=== PATIENT | male | born 1965 | race Caucasian/White ===

== ENCOUNTER 2016-12-24 19:57 | Day surgery (SDCO) | payer OTHER ==
[2016-12-24 20:53] LABS: BASOPHIL 0.2 % (0-2); EOSINOPHIL 0.6 % (0-5); HCT 45.6 % (42.0-52.0); HGB 15.4 g/dl (13.2-18.0); MCH 30.6 pg (25.0-31.0); MCHC 33.8 g/dL (32.0-36.0); MCV 90.7 fL (78.0-100.0); MONOCYTE 3.2 % (0-12); MPV 10.8 fL (6.0-9.5); PLT 212 K/uL (150-400); RBC 5.03 M/uL (4.70-6.00); RDW 12.8 % (11.5-14.0); WBC 10.6 K/uL (4.0-10.5)
[2016-12-24 20:58] LABS: INR 1.03 (0.9-1.2); PROTHROMBIN TIME 13.1 SECONDS (11.7-14.0); PTT 27.5 SECONDS (23.2-31.4)
[2016-12-24 20:59] LABS: D-DIMER 0.52 ug/mLFEU (0.00-0.41)
[2016-12-24 21:04] LABS: ALBUMIN 4.4 g/dL (3.5-5.0); BILIRUBIN - TOTAL 0.4 mg/dL (0.1-1.0); CREATININE 1.3 mg/dL (0.7-1.2); GLOBULIN (CALCULATION) 2.9 g/dL (2.2-4.2); POTASSIUM 4.5 mmol/L (3.5-5.1); TOTAL PROTEIN 7.3 g/dL (6.4-8.3)
[2016-12-24 21:05] LABS: PRO-BNP 42 pg/mL (0-125); TROPONIN T < 0.010 ng/mL
[2016-12-24 22:04] LABS: LACTIC ACID 3.4 mmol/L (0.5-2.2)
[2016-12-25 06:32] LABS: HCT 42.9 % (42.0-52.0); HGB 14.7 g/dl (13.2-18.0); MCH 30.8 pg (25.0-31.0); MCHC 34.3 g/dL (32.0-36.0); MCV 89.7 fL (78.0-100.0); MPV 9.8 fL (6.0-9.5); RBC 4.78 M/uL (4.70-6.00); RDW 12.7 % (11.5-14.0); WBC 11.2 K/uL (4.0-10.5)
[2016-12-25 07:02] LABS: CREATININE 1.1 mg/dL (0.7-1.2); POTASSIUM 3.8 mmol/L (3.5-5.1)
[2016-12-26 06:03] LABS: HCT 42.2 % (42.0-52.0); HGB 14.4 g/dl (13.2-18.0); MCH 31.3 pg (25.0-31.0); MCHC 34.1 g/dL (32.0-36.0); MCV 91.7 fL (78.0-100.0); MPV 10.2 fL (6.0-9.5); RBC 4.6 M/uL (4.70-6.00); RDW 12.9 % (11.5-14.0); WBC 9.4 K/uL (4.0-10.5)
[2016-12-26 06:19] LABS: CREATININE 1.2 mg/dL (0.7-1.2); POTASSIUM 3.8 mmol/L (3.5-5.1)
[2016-12-26] MEDS ORDERED: SYNTHROID125 MCG PO (13:29)
[2016-12-26] MEDS ORDERED: GABAPENTIN800 MG PO (13:29)
[2016-12-26] MEDS ORDERED: ALLERGY PILL PO (13:30)
[2016-12-26] MEDS ORDERED: OXYCODONE HCL15 MG PO (13:30)
[2016-12-26] MEDS ORDERED: OMEPRAZOLE40 MG PO (13:30)
[2016-12-26] MEDS ORDERED: TOPAMAX100 MG PO (13:30)
[2016-12-26] MEDS ORDERED: ZOCOR40 MG PO (13:30)
[2016-12-26] MEDS ORDERED: PROSCAR5 MG PO (13:31)
[2016-12-26] MEDS ORDERED: MICRO-K10 MEQ PO (13:31)
[2016-12-26] MEDS ORDERED: FLOMAX0.4 MG PO (13:31)
[2016-12-26] MEDS ORDERED: FENOFIBRATE160 MG PO (13:31)
[2016-12-26] MEDS ORDERED: VALIUM10 MG PO (13:32)
[2016-12-26] MEDS ORDERED: ACCUPRIL40 MG PO (13:32)
[2016-12-26] MEDS ORDERED: BUPROPION XL300 MG PO (13:32)
[2016-12-26] MEDS ORDERED: CERTAGEN1 EACH PO (13:33)
[2016-12-26] MEDS ORDERED: IMITREX100 MG PO (13:33)
[2016-12-26] MEDS ORDERED: VITAMIN B-121000 MC1 PO (13:33)
[2016-12-26] MEDS ORDERED: PHENTERMINE H37.5 MG PO (13:33)
[2016-12-26] MEDS ORDERED: LASIX20 MG PO (13:33)
[2016-12-26] MEDS ORDERED: FIORICET1 EACH PO (13:34)
[2016-12-26] MEDS ORDERED: TYLENOL ARTHRI650 MG PO (13:34)
[2016-12-26] MEDS ORDERED: PERCOCET 5-3251 EACH PO (13:34)
== END 2016-12-26 14:45 | disposition home health service (06) ==
LOC: FER 19:57 → FTCU 22:42 → FMS 22:42
PROVIDERS: Emergency Medicine; Internal Medicine; ADMIT Internal Medicine Cardiovascular Disease
DX: J96.01 Acute respiratory failure with hypoxia (principal); I11.0 Hypertensive heart disease with heart failure; I50.9 Heart failure, unspecified; E78.5 Hyperlipidemia, unspecified; E03.9 Hypothyroidism, unspecified; G47.30 Sleep apnea, unspecified; M54.5 Low back pain; G89.4 Chronic pain syndrome; H54.8 Legal blindness, as defined in USA; E66.01 Morbid (severe) obesity due to excess calories; Z98.1 Arthrodesis status; Z90.89 Acquired absence of other organs; Z98.890 Other specified postprocedural states; Z82.49 Family history of ischemic heart disease and other diseases of the circulatory system; Z88.6 Allergy status to analgesic agent; Z87.448 Personal history of other diseases of urinary system; Z79.899 Other long term (current) drug therapy; Z79.891 Long term (current) use of opiate analgesic; M75.121 Complete rotator cuff tear or rupture of right shoulder, not specified as traumatic; S43.431A Superior glenoid labrum lesion of right shoulder, initial encounter; M75.41 Impingement syndrome of right shoulder; M19.011 Primary osteoarthritis, right shoulder; E78.00 Pure hypercholesterolemia, unspecified; Z86.14 Personal history of Methicillin resistant Staphylococcus aureus infection
CPT/HCPCS: 36415; 36600; 71010; 80048; 80053; 82803; 83036; 83605; 83880; 84484; 85025; 85379; 85610; 85730; 93005; 94640; 94760; 97110; 97116; 97162; 97166; 97530; 97530-GP; 97535; C1713; G0378; J1100; J1170; J1940; J1956; J2270; J2405; J2704; J2795; J2930; J3010

== ENCOUNTER → 2016-12-24 | Day surgery (SDC) | payer OTHER ==
--- NOTE | 2016-12-18 15:33 | NUR ---
PT PRESENTS TODAY ALONE STATES HE IS LEGALLY BLIND RUDDY NOT KNOW WHO WILL TRANSPORT HOME POST OP WOULD LIKE TO STAY IN HOSP POST OP I INSTRUCTED PT TO CONTACT MD OFFICE TO SEE IF THIS COULD BE MADE POSSIBLE ALSO TOLD PT TO CHECK WITH HIS CHILD WELFARE CASEWORKER TO SEE IF THIS IS PERMITTED PER INSURANCE REVIEWED PAPERS HE NEEDED TO SIGN I EXPLAINED TO HIM HE DID NOT WANT ME TO READ IT TO HIM HE DID NOT KNOW HIS MEDICATION SO HE CALLED HIS DAUGHTER AND SHE GAVE THEM TO ME VERBALLY OVER THE PHONE I ASKED HIM IF HE QANTED TO TALK TO DISCHARGE [facility] PT REP HERE HE SAID NO IF HE CANT FIND A RIDE HE WILL HITCH HIKE HERE
[~2016-12-24] MED LIST: ACCUPRIL40 MG PO; ALLERGY PILL PO; BUPROPION XL300 MG PO; CERTAGEN1 EACH PO; FENOFIBRATE160 MG PO; FIORICET1 EACH PO; FLOMAX0.4 MG PO; GABAPENTIN800 MG PO; IMITREX100 MG PO; LASIX20 MG PO; MICRO-K10 MEQ PO; OMEPRAZOLE40 MG PO; OXYCODONE HCL15 MG PO; PERCOCET 5-3251 EACH PO; PHENTERMINE H37.5 MG PO; PROSCAR5 MG PO; SYNTHROID125 MCG PO; TOPAMAX100 MG PO; TYLENOL ARTHRI650 MG PO; VALIUM10 MG PO; VITAMIN B-121000 MC1 PO; ZOCOR40 MG PO
== END | disposition home or self-care (01) ==
LOC: FAS 08:24
DX: M75.121 Complete rotator cuff tear or rupture of right shoulder, not specified as traumatic (principal); S43.431A Superior glenoid labrum lesion of right shoulder, initial encounter; M75.41 Impingement syndrome of right shoulder; M19.011 Primary osteoarthritis, right shoulder; I10 Essential (primary) hypertension; E03.9 Hypothyroidism, unspecified; E78.00 Pure hypercholesterolemia, unspecified; H54.8 Legal blindness, as defined in USA; G47.30 Sleep apnea, unspecified; F41.9 Anxiety disorder, unspecified; F32.9 Major depressive disorder, single episode, unspecified; K44.9 Diaphragmatic hernia without obstruction or gangrene; K21.9 Gastro-esophageal reflux disease without esophagitis; N40.0 Benign prostatic hyperplasia without lower urinary tract symptoms; Z88.6 Allergy status to analgesic agent; Z98.1 Arthrodesis status; Z90.89 Acquired absence of other organs; Z86.14 Personal history of Methicillin resistant Staphylococcus aureus infection; Z79.891 Long term (current) use of opiate analgesic; Z79.899 Other long term (current) drug therapy; Z98.890 Other specified postprocedural states
CPT/HCPCS: C1713; J1100; J1170; J2405; J2704; J2795; J3010

== ENCOUNTER 2020-10-28 10:05 | Inpatient (IN) | payer OTHER ==
[~2020-10-28 10:05] MED LIST changes: +CYMBALTA 30MG C30 MG PO; +EMGALITY120 MG/1 M SC; +ENDOCET 10-3251 EACH PO; +GLUCOTROL5 MG PO; +METFORMIN HCL500 MG PO; +MOBIC7.5 MG PO; +NORVASC5 MG PO; +PROPRANOLOL HCL40 MG PO; +ROBAXIN500 MG PO; +TRULICITY0.75 MG/0. SC; +XANAX0.5 MG PO
[2020-10-28 11:20] LABS: BASOPHIL 0.4 % (0-2); EOSINOPHIL 0.4 % (0-5); HCT 43.8 % (42.0-52.0); HGB 15.1 g/dl (13.2-18.0); LYMPHOCYTE 9.7 % (15-48); MCH 30.5 pg (25.0-31.0); MCHC 34.5 g/dL (32.0-36.0); MCV 88.5 fL (78.0-100.0); MONOCYTE 11.9 % (0-12); MPV 10.4 fL (6.0-9.5); NEUTROPHIL 76.5 % (41-80); NRBC 0; PLT 142 K/uL (150-400); RBC 4.95 M/uL (4.70-6.00); RDW 12.7 % (11.5-14.0); WBC 5.5 K/uL (4.0-10.5)
[2020-10-28 11:34] LABS: LACTIC ACID 2.6 mmol/L (0.4-1.9)
[2020-10-28 11:41] LABS: BUN/CREAT RATIO (CALC) 14.9 RATIO; CREATININE 0.67 mg/dL (0.67-1.17)
[2020-10-28 11:57] LABS: CORONAVIRUS 2019 SARS-COV-2 POSITIVE (NEGATIVE)
[2020-10-28 11:58] LABS: INFLUENZA A NAA NEGATIVE (NEGATIVE)
[2020-10-29 06:23] LABS: HCT 42.9 % (42.0-52.0); HGB 14.9 g/dl (13.2-18.0); MCH 30.9 pg (25.0-31.0); MCHC 34.7 g/dL (32.0-36.0); MPV 10.3 fL (6.0-9.5); RBC 4.82 M/uL (4.70-6.00); RDW 12.8 % (11.5-14.0); WBC 5.1 K/uL (4.0-10.5)
[2020-10-29 06:24] LABS: BUN/CREAT RATIO (CALC) 21.5 RATIO; CREATININE 0.65 mg/dL (0.67-1.17); POTASSIUM 3.8 mmol/L (3.5-5.1)
[2020-10-29] MEDS ORDERED: LEVSIN-SL0.125 MG PO (08:57)
[2020-10-30 05:54] LABS: HCT 42.1 % (42.0-52.0); HGB 14.8 g/dl (13.2-18.0); MCH 31.2 pg (25.0-31.0); MCHC 35.2 g/dL (32.0-36.0); MCV 88.8 fL (78.0-100.0); MPV 10.1 fL (6.0-9.5); RBC 4.74 M/uL (4.70-6.00); RDW 12.7 % (11.5-14.0); WBC 4.3 K/uL (4.0-10.5)
[2020-10-30 06:21] LABS: ALBUMIN 3.3 g/dL (3.4-5.0); BILIRUBIN - DIRECT 0.2 mg/dL (0.00-0.20); BILIRUBIN - TOTAL 0.5 mg/dL (0.2-1.0); BUN/CREAT RATIO (CALC) 25.7 RATIO; CREATININE 0.74 mg/dL (0.67-1.17); GLOBULIN (CALCULATION) 3.3 g/dL; POTASSIUM 3.8 mmol/L (3.5-5.1); TOTAL PROTEIN 6.6 g/dL (6.4-8.2)
--- NOTE | 2020-10-30 15:55 | NUR ---
PLASMA VERIFIED WITH TWO RN'S, ALL PARTS WERE SCANNED WITH NO ERROR CODES, SECOND RN WAS ABLE TO COSIGN WITH NO ISSUES, AFTER PLASMA FINISHED THIS RN NOTICED THAT THERE WAS NOT AN END OPTION TO STATE THE PLASMA HAD ENDED. WE SPOKE TO QUALITATIVE FIELD COORDINATOR, AND YAEL SYED, WE RESCANNED AND BACK TIME
[2020-10-30] MEDS ORDERED: HYOSCYAMINE0.375 MG PO (17:25)
--- NOTE | 2020-10-31 15:24 | NUR ---
10/31/20 Discharge is anticipated for 11/01. A referral was made to [facility] for home 02. [facility]. [facility] declined the referral based on insurance. Mr. Akins chose [facility] as second choice; affliation explained. A referral was made to [facility] via [facility].
[2020-11-01 07:44] LABS: ALBUMIN 3.2 g/dL (3.4-5.0); BILIRUBIN - TOTAL 0.8 mg/dL (0.2-1.0); BUN/CREAT RATIO (CALC) 29.8 RATIO; CREATININE 0.57 mg/dL (0.67-1.17); GLOBULIN (CALCULATION) 4.2 g/dL; MAGNESIUM 1.7 mg/dL (1.8-2.4); POTASSIUM 4.3 mmol/L (3.5-5.1); TOTAL PROTEIN 7.4 g/dL (6.4-8.2)
[2020-11-02 06:05] LABS: BASOPHIL 0.2 % (0-2); EOSINOPHIL 0.1 % (0-5); HCT 43.2 % (42.0-52.0); LYMPHOCYTE 17.9 % (15-48); MCH 30.2 pg (25.0-31.0); MCHC 34.7 g/dL (32.0-36.0); MCV 86.9 fL (78.0-100.0); MONOCYTE 11.2 % (0-12); MPV 9.8 fL (6.0-9.5); NEUTROPHIL 69.9 % (41-80); NRBC 0; PLT 175 K/uL (150-400); RBC 4.97 M/uL (4.70-6.00); RDW 12.4 % (11.5-14.0); WBC 10.1 K/uL (4.0-10.5)
[2020-11-02 06:41] LABS: BUN/CREAT RATIO (CALC) 23.6 RATIO; CREATININE 0.72 mg/dL (0.67-1.17); MAGNESIUM 1.8 mg/dL (1.8-2.4); POTASSIUM 3.4 mmol/L (3.5-5.1)
[2020-11-02] MEDS ORDERED: DULERA 200 MCG8.8 GM INH (09:14)
[2020-11-02] MEDS ORDERED: MEDROL 4MG DOSEP4 MG PO (09:14)
[2020-11-02] MEDS ORDERED: PROVENTIL HFA6.7 GM INH (09:14)
[2020-11-02] MEDS ORDERED: NORVASC5 MG PO (09:14)
[2020-11-02] MEDS ORDERED: METFORMIN HCL500 MG PO (09:14)
--- NOTE | 2020-11-02 09:31 | NUR ---
11/02/20 A was notified of dc. A report was given to MS Nimisha RN. A request was made for nursing to remind patient to call [facility] for delivery of concentrator.
== END 2020-11-02 11:50 | disposition home health service (06) | DRG 177 ==
LOC: FER 10:05 → FMS 12:10
PROVIDERS: Emergency Medicine; Internal Medicine; ADMIT Hospitalist
PROC: XW033E5 Introduction of Remdesivir Anti-infective into Peripheral Vein, Percutaneous Approach, New Technology Group 5 (ICD-10-PCS; principal; 2020-10-28)
PROC: 8E0ZXY6 Isolation (ICD-10-PCS; 2020-10-28)
PROC: XW13325 Transfusion of Convalescent Plasma (Nonautologous) into Peripheral Vein, Percutaneous Approach, New Technology Group 5 (ICD-10-PCS; 2020-10-30)
DX: U07.1 COVID-19 (principal); J12.82 Pneumonia due to coronavirus disease 2019; J96.01 Acute respiratory failure with hypoxia; Z68.41 Body mass index [BMI] 40.0-44.9, adult; E11.65 Type 2 diabetes mellitus with hyperglycemia; T38.0X5A Adverse effect of glucocorticoids and synthetic analogues, initial encounter; I10 Essential (primary) hypertension; E78.5 Hyperlipidemia, unspecified; G43.909 Migraine, unspecified, not intractable, without status migrainosus; G47.33 Obstructive sleep apnea (adult) (pediatric); E03.9 Hypothyroidism, unspecified; E66.01 Morbid (severe) obesity due to excess calories; Z98.890 Other specified postprocedural states; Z88.6 Allergy status to analgesic agent; Z99.81 Dependence on supplemental oxygen
CPT/HCPCS: 36415; 36430; 36600; 71045; 80048; 80053; 82248; 82607; 82803; 82962; 83605; 83735; 85025; 86900; 86901; 87040; 94640; 94667; 94668; 97110; 97162; 97165; 97530-GP; 97535; C9399; J1100; J1650; J3420; J3475; J7050; J8540; P9017; U0002

== ENCOUNTER 2020-11-04 17:19 | Inpatient (IN) | payer OTHER ==
[~2020-11-04 17:19] MED LIST changes: +DULERA 200 MCG8.8 GM INH; +HYOSCYAMINE0.375 MG PO; +LEVSIN-SL0.125 MG PO; +MEDROL 4MG DOSEP4 MG PO; +PROVENTIL HFA6.7 GM INH
[2020-11-04 18:48] LABS: BASOPHIL 0.4 % (0-2); EOSINOPHIL 0.4 % (0-5); HCT 47.3 % (42.0-52.0); HGB 16.2 g/dl (13.2-18.0); LYMPHOCYTE 9.5 % (15-48); MCH 30.1 pg (25.0-31.0); MCHC 34.2 g/dL (32.0-36.0); MCV 87.9 fL (78.0-100.0); MONOCYTE 8.2 % (0-12); NEUTROPHIL 79.9 % (41-80); NRBC 0; PLT 283 K/uL (150-400); RBC 5.38 M/uL (4.70-6.00); RDW 12.7 % (11.5-14.0); WBC 13.4 K/uL (4.0-10.5)
[2020-11-04 19:08] LABS: ALBUMIN 3.2 g/dL (3.4-5.0); BILIRUBIN - TOTAL 0.8 mg/dL (0.2-1.0); BUN/CREAT RATIO (CALC) 21.1 RATIO; CREATININE 0.71 mg/dL (0.67-1.17); GLOBULIN (CALCULATION) 4.9 g/dL; POTASSIUM 4.5 mmol/L (3.5-5.1); TOTAL PROTEIN 8.1 g/dL (6.4-8.2)
[2020-11-05 01:43] LABS: BASOPHIL 0.3 % (0-2); EOSINOPHIL 0 % (0-5); HGB 14.9 g/dl (13.2-18.0); LYMPHOCYTE 6.8 % (15-48); MCH 29.7 pg (25.0-31.0); MCHC 33.9 g/dL (32.0-36.0); MCV 87.6 fL (78.0-100.0); MONOCYTE 5.3 % (0-12); MPV 10.1 fL (6.0-9.5); NEUTROPHIL 85.8 % (41-80); NRBC 0; PLT 268 K/uL (150-400); RBC 5.02 M/uL (4.70-6.00); RDW 12.5 % (11.5-14.0); WBC 11.9 K/uL (4.0-10.5)
[2020-11-05 01:53] LABS: INR 1.08 (0.9-1.2); PROTHROMBIN TIME 13.3 SECONDS (11.4-13.6)
[2020-11-05 02:05] LABS: ALBUMIN 2.9 g/dL (3.4-5.0); BILIRUBIN - TOTAL 0.9 mg/dL (0.2-1.0); BUN/CREAT RATIO (CALC) 24.2 RATIO; CREATININE 0.62 mg/dL (0.67-1.17); GLOBULIN (CALCULATION) 4.7 g/dL; MAGNESIUM 1.7 mg/dL (1.8-2.4); PHOSPHORUS 4.3 mg/dL (2.6-4.7); POTASSIUM 4.5 mmol/L (3.5-5.1); TOTAL PROTEIN 7.6 g/dL (6.4-8.2)
[2020-11-05 02:16] LABS: BILIRUBIN NEGATIVE (NEGATIVE); BLOOD NEGATIVE Ery/uL (NEGATIVE); CLARITY CLEAR (CLEAR); COLOR YELLOW (YELLOW); GLUCOSE (U) 3+ mg/dL (NORMAL); LEUKOCYTES NEGATIVE Leu/uL (NEGATIVE); NITRITE NEGATIVE (NEGATIVE); PROTEIN NEGATIVE (NEGATIVE); SPECIFIC GRAVITY 1.015 (1.001-1.030)
[2020-11-05 07:24] LABS: LACTIC ACID 1.9 mmol/L (0.4-1.9)
[2020-11-06 06:33] LABS: BASOPHIL 0.3 % (0-2); EOSINOPHIL 0.1 % (0-5); HCT 40.8 % (42.0-52.0); HGB 13.9 g/dl (13.2-18.0); LYMPHOCYTE 8.3 % (15-48); MCH 30.3 pg (25.0-31.0); MCHC 34.1 g/dL (32.0-36.0); MCV 88.9 fL (78.0-100.0); MONOCYTE 8.8 % (0-12); MPV 9.7 fL (6.0-9.5); NEUTROPHIL 79.5 % (41-80); NRBC 0; PLT 248 K/uL (150-400); RBC 4.59 M/uL (4.70-6.00); RDW 12.3 % (11.5-14.0); WBC 8.8 K/uL (4.0-10.5)
[2020-11-06 07:08] LABS: ALBUMIN 2.5 g/dL (3.4-5.0); BILIRUBIN - TOTAL 0.6 mg/dL (0.2-1.0); BUN/CREAT RATIO (CALC) 23.1 RATIO; CREATININE 0.65 mg/dL (0.67-1.17); GLOBULIN (CALCULATION) 4.4 g/dL; POTASSIUM 4.4 mmol/L (3.5-5.1); TOTAL PROTEIN 6.9 g/dL (6.4-8.2)
--- NOTE | 2020-11-07 12:41 | NUR ---
11/07/20 Mr. Akins lives at home with his spouse. He has home 02 and a C-PAP. [facility] is current and was notified of admission.
[2020-11-08 06:19] LABS: BASOPHIL 0.7 % (0-2); EOSINOPHIL 0.1 % (0-5); HCT 43.8 % (42.0-52.0); HGB 15.1 g/dl (13.2-18.0); LYMPHOCYTE 8.4 % (15-48); MCH 30.2 pg (25.0-31.0); MCHC 34.5 g/dL (32.0-36.0); MCV 87.6 fL (78.0-100.0); MPV 9.5 fL (6.0-9.5); NEUTROPHIL 76.3 % (41-80); NRBC 0; PLT 349 K/uL (150-400); WBC 10.8 K/uL (4.0-10.5)
[2020-11-08 08:27] LABS: ALBUMIN 2.9 g/dL (3.4-5.0); BILIRUBIN - TOTAL 0.6 mg/dL (0.2-1.0); C-REACTIVE PROTEIN 2.8 mg/dL (<=0.90); CREATININE 0.64 mg/dL (0.67-1.17); GLOBULIN (CALCULATION) 3.9 g/dL; POTASSIUM 4.1 mmol/L (3.5-5.1); TOTAL PROTEIN 6.8 g/dL (6.4-8.2)
--- NOTE | 2020-11-10 08:48 | NUR ---
PT C/O CHILLS, DIAPHORESIS, NOT FEELING WELL. PT VITALS ARE 178/98 HR 65 TEMP 97.5 RR 23 O2 92% ON 50% VENTI MASK. PT WAS GIVEN MORNING MEDICATIONS WHICH INCLUDED PAIN MEDICATION, BLOOD PRESSURE MEDICATION, NAUSEA AND STOMACH MEDICATION. BLOOD GLUCOSE WAS 76 AND PT STATED THIS WAS LOW FOR HIM. PT WAS THEN GIVEN BREAKFAST AND THIS RN WILL REASSESS IN 30 MINUTES.
--- NOTE | 2020-11-10 13:33 | NUR ---
PT C/O MIGRAINE/HEADACHE FROM BACK OF HEAD TO EYES. PT GOT SCHEDULED PERCOCET AND IMITREX FOR PAIN. MD NOTIFIED. NO NEW ORDERS AT THIS TIME.
--- NOTE | 2020-11-10 14:44 | NUR ---
MD ORDER TORADOL IVP 2 ML AND PHENGRAN 12.5 IV @ 202 ML/HR FOR PT MIGRAINE
--- NOTE | 2020-11-10 14:50 | NUR ---
[facility] WORKED WITH PT IN AMBULATING IN ROOM AND STTING UP IN THE CHAIR. P. THERAPY REPORTED PT DOES NOT NEED A WALKER BUT SOME GUIDED ASSISTANCE R/T CORDS AND TUBING FROM TELEMON AND OXYGEN. PT IS LEGALLY BLIND AND DIONICIO SEE FAR DISTANCES. PT IS SITTING UP IN THE CHAIR TALKING ON CELL PHONE. C/O HEADACHE A 7 OUT OF 10. MEDICATION GIVEN.
[2020-11-11] MEDS ORDERED: ELIQUIS2.5 MG PO (09:42)
[2020-11-11] MEDS ORDERED: LOPRESSOR50 MG PO (09:42)
[2020-11-11] MEDS ORDERED: TOPROL XL 50 MG50 MG PO ×2 (09:43→09:44)
[2020-11-11] MEDS ORDERED: DILTIAZEM ER180 MG PO (09:45)
[2020-11-11] MEDS ORDERED: BUMEX1 MG PO (09:46)
[2020-11-11] MEDS ORDERED: CHLORTHALIDONE25 MG PO (09:46)
[2020-11-11] MEDS ORDERED: FERROUS GLUCON324 M2 PO (09:47)
[2020-11-13 05:44] LABS: BASOPHIL 0.5 % (0-2); EOSINOPHIL 1.1 % (0-5); HCT 42.5 % (42.0-52.0); HGB 14.5 g/dl (13.2-18.0); LYMPHOCYTE 17.6 % (15-48); MCH 30.6 pg (25.0-31.0); MCHC 34.1 g/dL (32.0-36.0); MCV 89.7 fL (78.0-100.0); MONOCYTE 7.6 % (0-12); MPV 9.4 fL (6.0-9.5); NEUTROPHIL 70.9 % (41-80); NRBC 0; PLT 253 K/uL (150-400); RBC 4.74 M/uL (4.70-6.00); RDW 12.5 % (11.5-14.0); WBC 9.8 K/uL (4.0-10.5)
[2020-11-13 06:40] LABS: BUN/CREAT RATIO (CALC) 21.5 RATIO; CREATININE 0.65 mg/dL (0.67-1.17); POTASSIUM 4.1 mmol/L (3.5-5.1)
[2020-11-14] MEDS ORDERED: DEXAMETHASONE 2M2 MG PO (11:42)
--- NOTE | 2020-11-14 13:09 | NUR ---
11/14/20 [facility] was notified of discharge for today. Dr. Pal increased the 02 L from 2 - 3. A new order was sent to [place]'. Patient has a portable tank for transport home.
--- NOTE | 2020-11-14 15:18 | NUR ---
PT DISCHARGED VIA WHEELCHAIR TO [facility]. PT WORE MASK OUT OF THE HOSPITAL. PT OXYGEN TANK FROM [employer] WENT WITH HIM. PT GIVEN DISCAHRGE INSTRUCTIONS AND PACKET.
== END 2020-11-14 15:23 | disposition home health service (06) | DRG 871 ==
LOC: FER 17:19 → FTCU 23:17
PROVIDERS: Internal Medicine; Nurse Practitioner; Nurse Practitioner Family; ADMIT Allergy & Immunology Allergy
PROC: 8E0ZXY6 Isolation (ICD-10-PCS; principal; 2020-11-04)
DX: A41.89 Other specified sepsis (principal); J96.01 Acute respiratory failure with hypoxia; U07.1 COVID-19; J15.9 Unspecified bacterial pneumonia; J12.82 Pneumonia due to coronavirus disease 2019; E87.2 Acidosis; N39.0 Urinary tract infection, site not specified; I10 Essential (primary) hypertension; R65.20 Severe sepsis without septic shock; G47.33 Obstructive sleep apnea (adult) (pediatric); E66.01 Morbid (severe) obesity due to excess calories; E11.65 Type 2 diabetes mellitus with hyperglycemia; T38.0X5A Adverse effect of glucocorticoids and synthetic analogues, initial encounter; E78.5 Hyperlipidemia, unspecified; E03.9 Hypothyroidism, unspecified; H54.8 Legal blindness, as defined in USA; G43.901 Migraine, unspecified, not intractable, with status migrainosus; Z79.84 Long term (current) use of oral hypoglycemic drugs; Z79.899 Other long term (current) drug therapy; Z98.890 Other specified postprocedural states; Y95 Nosocomial condition; Z88.6 Allergy status to analgesic agent; Z88.0 Allergy status to penicillin; Z88.1 Allergy status to other antibiotic agents
CPT/HCPCS: 36415; 36600; 71045; 71275; 80048; 80053; 80202; 81003; 82728; 82803; 82962; 83036; 83605; 83735; 84100; 84145; 85025; 85379; 85610; 86140; 87040; 94010; 94640; 94667; 94668; 94762; 97110; 97116; 97162; 97166; 97530-GP; 97535; J0456; J1100; J1650; J1885; J2405; J2543; J2550; J3370; J3475; J7030; J7040; J7050; J8540; Q9967; U0002